=== PATIENT | male | born 1960 | race Caucasian/White ===

== ENCOUNTER 2022-01-11 08:37 | Outpatient (REF) | payer BC, SELFPAY ==
[2022-01-11 11:19] LABS: MANUAL DIFF FLAG NO
[2022-01-11 11:31] LABS: Basophils Percent Auto 0.7 % (0-2); Eosinophils Absolute Auto 0.2 X10*3/uL (0.0-0.4); Eosinophils Percent Auto 5.3 % (0-4); Hematocrit 44.5 % (42.0-52.0); Hemoglobin 14.5 g/dl (14.0-18.0); Imm Gran Abs Auto 0.01 X10*3/uL (0.00-0.03); Imm Gran Pct Auto 0.2 % (0.0-0.4); Lymphocytes Absolute Auto 1.3 X10*3/uL (1.2-4.9); Lymphocytes Percent Auto 29.3 % (20-40); Mean Corpuscular HGB Conc 32.6 g/dl (31.0-36.0); Mean Corpuscular Hemoglobin 28.3 pg (27.0-33.0); Mean Corpuscular Volume 86.7 fL (80.0-98.0); Mean Platelet Volume 11.8 fL (9.4-12.4); Monocytes Absolute Auto 0.4 X10*3/uL (0.1-1.2); Monocytes Percent Auto 8.8 % (2-11); Neutrophils Absolute Auto 2.4 x10*3/uL (2.0-8.3); Neutrophils Percent Auto 55.7 % (45-73); Platelet Count 234 X10*3/uL (160-400); Red Blood Count 5.13 X10*6/uL (4.60-5.80); Red Cell Distribution Width 13.2 % (11.0-16.0); White Blood Count 4.3 X10*3/uL (4.8-10.8)
[2022-01-11 11:50] LABS: Alanine Aminotransferase 20 U/L (0-40); Albumin Level 4.1 g/dL (3.5-5.0); Alkaline Phosphatase 70 U/L (39-117); Anion Gap 12 (12-20); Aspartate Amino Transferase 18 U/L (5-37); Bilirubin Total 0.8 mg/dL (0.0-1.0); Blood Urea Nitrogen 17 mg/dL (9-16); Calcium 9.3 mg/dL (8.4-10.2); Carbon Dioxide 28 mmol/L (22-29); Chloride 106 mmol/L (96-108); Cholesterol 173 mg/dL; Estimated Glomerular Filt Rate > 60; Glucose Fasting 92 mg/dL (60-99); HDL Cholesterol 50 mg/dL; LDL Cholesterol Calculated 111 mg/dl; Potassium 4.1 mmol/L (3.3-5.1); Sodium 142 mmol/L (135-145); Total Protein 6.7 g/dL (6.5-8.0); Triglycerides 63 mg/dL
[2022-01-11 12:17] LABS: Prostate Specific Antigen 0.79 ng/mL (<0.05-4.0)
== END 2022-01-11 08:38 | disposition home or self-care (01) ==
LOC: HO.MANLDS 08:37
PROVIDERS: PCP Internal Medicine; Visit Provider Internal Medicine
DX: Z12.5 Encounter for screening for malignant neoplasm of prostate (principal); E78.00 Pure hypercholesterolemia, unspecified
CPT/HCPCS: 36415; 80053; 80061; 84153; 85025

== ENCOUNTER 2024-04-01 07:52 | Outpatient (REF) | payer BC, SELFPAY ==
[2024-04-01 13:00] LABS: MANUAL DIFF FLAG NO
[2024-04-01 13:20] LABS: Basophils Percent Auto 0.8 % (0-2); Eosinophils Absolute Auto 0.3 X10*3/uL (0.0-0.4); Eosinophils Percent Auto 4.8 % (0-4); Hematocrit 45.6 % (42.0-52.0); Imm Gran Abs Auto 0.01 X10*3/uL (0.00-0.03); Imm Gran Pct Auto 0.2 % (0.0-0.4); Lymphocytes Absolute Auto 1.7 X10*3/uL (1.2-4.9); Lymphocytes Percent Auto 31.7 % (20-40); Mean Corpuscular HGB Conc 32.9 g/dl (31.0-36.0); Mean Corpuscular Hemoglobin 28.7 pg (27.0-33.0); Mean Corpuscular Volume 87.4 fL (80.0-98.0); Mean Platelet Volume 11.5 fL (9.4-12.4); Monocytes Absolute Auto 0.5 X10*3/uL (0.1-1.2); Monocytes Percent Auto 9.8 % (2-11); Neutrophils Absolute Auto 2.8 x10*3/uL (2.0-8.3); Neutrophils Percent Auto 52.7 % (45-73); Platelet Count 253 X10*3/uL (160-400); Red Blood Count 5.22 X10*6/uL (4.60-5.80); Red Cell Distribution Width 13.9 % (11.0-16.0); White Blood Count 5.2 X10*3/uL (4.8-10.8)
[2024-04-01 13:46] LABS: Alanine Aminotransferase 21 U/L (0-40); Albumin Level 4.2 g/dL (3.5-5.0); Alkaline Phosphatase 67 U/L (39-117); Anion Gap 11 (12-20); Aspartate Amino Transferase 21 U/L (5-37); Bilirubin Total 0.6 mg/dL (0.0-1.0); Blood Urea Nitrogen 17 mg/dL (9-16); Calcium 9.7 mg/dL (8.4-10.2); Carbon Dioxide 28 mmol/L (22-29); Chloride 106 mmol/L (96-108); Cholesterol 194 mg/dL (<200); Estimated Glomerular Filt Rate > 60; Glucose Random 88 mg/dL (60-115); HDL Cholesterol 56 mg/dL (>40); LDL Cholesterol Calculated 122 mg/dL (<100); Potassium 4.3 mmol/L (3.3-5.1); Sodium 141 mmol/L (135-145); Triglycerides 83 mg/dL (<150)
[2024-04-01 13:47] LABS: Prostate Specific Antigen 0.64 ng/mL (<0.05-4.0)
== END 2024-04-01 07:53 | disposition home or self-care (01) ==
LOC: HO.MANLDS 07:52
PROVIDERS: Visit Provider Internal Medicine
DX: E78.00 Pure hypercholesterolemia, unspecified (principal); Z12.5 Encounter for screening for malignant neoplasm of prostate
CPT/HCPCS: 36415; 80053; 80061; 84153; 85025

== ENCOUNTER 2025-08-21 09:20 | Outpatient (REF) | payer MEDICARE, BC, SELFPAY ==
--- OUTSIDE RECORDS SUMMARY | 2025-08-21 09:49 | XMS_ITS | Continuity of Care Document ---
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) MDM MODERATE MUST MEET 2 OUT OF 3 ELEMENTS: PROBLEMS, DATA OR RISK ELEMENT 1: PROBLEMS ADDRESSED 1 OR MORE CHRONIC ILLNESS WITH EXACERBATION OR 2 OR MORE STABLE CHRONIC ILLNESSES OR 1 UNDIAGNOSED NEW PROBLEM OR 1 ACUTE ILLNESS W/SYMPTOMS OR 1 ACUTE COMPLICATED INJURY ELEMENT 2: DATA MUST MEET 1 OF 3 CATEGORIES CATEGORY 1: REVIEW OF PRIOR EXTERNAL NOTES, REVIEW OF RESULTS, ORDERING OF EACH TEST, ASSESSMENT REQUIRING INDEPENDENT HISTORIAN OR CATEGORY 2: INDEPENDENT INTERPRETATION OF TESTS BY ANOTHER PHYSICIAN OR SPECIALIST OR CATEGORY 3: DISCUSSION OF MGT OR TEST INTERPRETATION W/EXTERNAL PHYSICIAN OR SPECIALIST ELEMENT 3: RISK RISK OF COMPLICATIONS AND/OR MORBIDITY OR MORTALITY OF PATIENT MANAGEMENT PROVIDER MUST THOROUGHLY DOCUMENT EACH ELEMENT THAT IS COVERED [email or web address] Not available 08/21/2025 09:09:19 Plan of Treatment Reminders Order Date Submit Date Provider Last Modified By Organization Details Last Modified Time Details Appointments FOLLOW UP 15 2024 09:00A M DR CHAPPELL Not available Not available Not available Lab lipid panel, blood 2024 025 [facility], [address] [place] [address], [id number], 08/21/2025 09:15:29 CMP, serum or plasma 2024 025 [facility], [address] [place] [address], [id number], 08/21/2025 09:15:30 PSA, serum or plasma 2024 025 [facility], [address] [place] [address], [id number], 08/21/2025 09:15:30 CBC w/ auto diff 2024 025 [facility], [address] [place] [address], [id number], 08/21/2025 09:15:29 Referral hand surgeon referral 2024 025 [email or web address] Emilia Murphy MD, [address] [place] [address], [id number], 08/21/2025 09:11:47 Procedures None recorded. Surgeries None recorded. Imaging None recorded. Medication Orders None recorded. Patient TargetsNo targets recorded. Patient InstructionsNo instructions recorded. Reason for Referral Hand Surgeon Referral for En trapment of left ulnar nerve Referring Physician: Ulysses Chappell, Internal Medicine, Encounter Date: 08/21/2025 Problems Name Problem SNOMED Code Status Onset Date Resolution Date Notes Provider Name and Address Organization Details Recorded Time Bilateral cataracts 85477959 Active 2018 Davina torres [facility] 9 11:16:53 Gout 15132176 Active 2018 Davina torres [facility] 9 11:16:56 Hyperchol esterolem ia 85707312 Active 2018 Davina torres [facility] 9 11:17:01 Family history of stroke 138063833 Active 2018 Davina torres [facility] 9 11:17:11 Family history of Myocardia l infarctio n 827498375 Active 2018 Davina torres [facility] 9 11:17:19 Family history of neoplasm of cervix 023896975 Active 2018 Davina torres [facility] 9 11:17:29 Full thickness rotator cuff tear 502061667 Active 2021 Ulysses Chappell, DO [address] [place] [address], [phone], [facility] 2 15:14:15 Acute conjuncti vitis 33758979 Active 2022 Ulysses Chappell, [address], [phone], [facility] 3 22:54:59 Acute right otitis media 623703961 Active 2022 Ulysses Chappell, DO [address] [place] [address], [phone], [facility] 3 15:00:47 Lumbago with sciatica 881525834 Active 2023 PARIS PHILLIPS [address] [place] [address], [phone], [facility] 4 11:39:08 Lumbago with sciatica 944729096 Active 2023 PARIS PHILLIPS [address] [place] [address], [phone], [facility] 4 11:39:15 Entrapmen t of left ulnar nerve 985727945775 101 Active 2024 Ulysses Chappell [address], [phone], [facility] 5 09:10:03 Problem Notes None recorded. Procedures Surgical History Date Name Laterality Status Provider Name and Address Organization Details Recorded Time 5 Colonoscopy completed Davina Austin [facility] 10/30/2018 11:31:24 Imaging Results None recorded. Procedure Notes None recorded. Medical Equipment None Reported. Allergies Allergen ID Allergen Name Allergen Category Reaction Reaction Severity Criticality Documentation Date Start Date Code Code System Note Provider Name and Address Organization Details Recorded Time 1015 atorvasta tin medicatio n myalgias (muscle pain) Not available Not available 10/30/2018 03696 RxNorm Davina Austin [facility] 9 11:16:46 Medications Name Sig Start Date Stop Date Status Note LastModified by Organization Details LastModified Time amoxicillin 500 mg capsule 03/26 completed Not Available Not Available Not Available prednisone 10 mg tablet 50 mg x 2 days40 mg x 2 days30 mg x 2 days20 mg x 2 days10 mg x 2 days 08/21 completed Not Available Not Available Not Available valacyclovi r 1 gram tablet Take 1 tablet every day by oral route for 30 days. 03/26 completed Not Available Not Available Not Available tramadol 50 mg tablet TAKE 1 TABLET BY MOUTH EVERY 6 HOURS FOR 14 DAYS NEEDED 08/21 completed Not Available Not Available Not Available baclofen 10 mg tablet TAKE 1 TABLET BY MOUTH THREE TIMES DAILY FOR 14 DAYS NEEDED 08/21 completed Not Available Not Available Not Available polymyxin B sulfate 10,000 unit-trimet hoprim 1 mg/mL eye drops PUT 1 DROP INTO THE AFFECTED EYE(S) EVERY 6 HOURS 01/02 completed Not Available Not Available Not Available colchicine 0.6 mg tablet Take 1 tablet 3 times a day by oral route as needed for 7 days. 06/16 completed Not Available Not Available Not Available amoxicillin 875 mg-potassiu m clavulanate 125 mg tablet TAKE 1 TABLET BY MOUTH EVERY 12 HOURS FOR 10 DAYS 03/26 completed Not Available Not Available Not Available oxycodone 5 mg tablet 01/02 completed Not Available Not Available Not Available rosuvastati n 5 mg tablet TAKE 1 TABLET BY MOUTH EVERY DAY active Not Available Not Available No t Available Vitals Date Recorded Body height Body mass index (BMI) Body weight Heart rate Oxygen saturation Systolic And Diastolic Provider Name and Address Organization Details Last Updated DateTime 5 172.72 cm 29.6 kg/m2 99736.5 1 g 53 /min 96 % 132/88 mm[Hg] [facility] 5 08:55:27 Social History Question Answer Notes LastModified by Organizat ion Details LastModified Time Tobacco Smoking Status Never Smoker Not Available [employer] 08/03/2020 03:36:24 What Was The Date Of Your Most Recent Tobacco Screening? 08/21/2025 [email or web address] Information not available 08/21/2025 Sex: Unknown Functional Status Question Answer Note LastModified by Organization D etails LastModified Time Do you or have you ever used any other forms of tobacco or nicotine? No [email or web address] Information not available 01/06/2022 Mental Status None recorded. Family History Nothing Reported. Medical History No medical history recorded. Past Encounters Encounter ID Performer Location Encounter Start Date Encounter Closed Date Diagnosis/Indication Diagnosis SNOMED-CT Code Diagnosis ICD10 Code Diagnosis IMO Codes Diagnosis Note [id number] Ulysses Chappell DO [facility] [address] [address] 08/21/2025 08:48:54 08/21/2025 09:14:51 Depression screening 900683418 Z13.31 SCREENING NEGATIVE Hypercholesterolemia 136 57936 E78.00 LDL elevated 140, HDL 56 - continue current tx discussed in detail ETT 'is negative in the past Lumbago with sciatica 20 3566724 M54.42 doing ok Entrapment of left ulnar nerve 1971983602 83036 G56.22 20840303 Ongoing paraesthes ia, no weakness Health Concerns Section Related Observation LastModified by Organization Detai ls LastModified Time None Recorded Concern Status LastModified by Organization Details LastModified Time None Recorded Payers Encounter Date Sequence Insurance Name Policy Number Policy Hodgson Covered Member ID Hodgson Member ID Guarantor Name 08/21/2025 2 [place] [facility] Adal Piña [id number] 25 Adal Piña 08/21/2025 1 [place] [facility] [place] [place] [id number] Davina Gupta Lococo [id number] 25 Adal Piña Notes Date Note Type Note Provider Name and Address Organization Details Recorded Time 08/21/20 25 text/htm l Care Management - HyperlipidemiaReported by PatientHPIFor control, patient reportsusually well controlled,improving, andat goal. 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 and has worsened, no improvement with NSAIDs, ice, heat, rest, massage, biofreezerecommended start pred taper with as needed tramadol and baclofen for painpain radiates from the left lower back into the left leg to the knee, feels burning and stingingbetter when he stands or leans forward, worse when he is sitting recommended medications firstif no improvement will pursue imaging also needs to hold off heavy liftingrecommend back brace for heavy lifting, can take off after Ulysses Chappell, DO [address], [place], [address], [facility] 08/21/2025 09:14:50
--- OUTSIDE RECORDS SUMMARY | 2025-08-21 09:49 | XMS_ITS | Data Portability ---
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) [facility] MODERATE MUST MEET 2 OUT OF 3 [...] THOROUGHLY DOCUMENT EACH ELEMENT THAT IS COVERED Not available 03/26/2024 09:45:47 08/21/2025 08/21/2025 [id number] [place] [address] (CEMENT RAILRO[employer] LO[employer]ER) MDM MODERATE MUST MEET 2 OUT OF [...] THOROUGHLY DOCUMENT EACH ELEMENT THAT IS COVERED Not available 08/21/2025 09:09:19 Plan of Treatment Reminders Order Date Submit Date Provider Last Modified By Organization Details Last Modified Time Details Appointments FOLLOW UP 15 2024 09:00A M DR CHAPPELL Not available Not available Not available Lab lipid panel, blood 2024 025 [facility], [address] [place] [address], [id number], 08/21/2025 09:15:29 CMP, serum or plasma 2024 025 [facility], [address] [place] [address], [id number], 08/21/2025 09:15:30 PSA, serum or plasma 2024 025 [facility], [address] [place] [address], [id number], 08/21/2025 09:15:30 CBC w/ auto diff 2024 025 [facility], [address] [place] [address], [id number], 08/21/2025 09:15:29 lipid panel, blood 2023 024 [facility], [address] [place] [address], [id number], 04/02/2024 11:17:52 CMP, serum or plasma 2023 024 [facility], [address] [place] [address], [address], 04/02/2024 11:17:52 PSA, serum or plasma 2023 024 [facility], [address] [place] [address], [address], 04/02/2024 11:17:51 CBC 2023 024 [facility], [address] [place] [address], [address], 04/02/2024 11:17:52 lipid panel, blood 2021 [facility], [address] [place] [address], [id number], 01/06/2022 15:20:27 CMP, serum or plasma 2021 022 [facility], [address] [place] [address], [address], 01/12/2022 16:02:17 PSA, serum or plasma 2021 022 [facility], [address] [place] [address], [id number], 01/06/2022 15:20:27 CBC w/ auto diff 2021 022 [facility], [address] [place] [address], [id number], 01/06/2022 15:20:27 Referral hand surgeon referral 2024 025 [email or web address] Emilia Murphy MD, [address] [place] [address], [id number], 08/21/2025 09:11:47 Procedures None recorded. Surgeries None recorded. Imaging CT, coronary calcium score 2023 024 [facility], [address] [place], [address], 04/14/2024 08:09:34 CT, coronary calcium score 2021 022 [facility], [address] [place], [address], 01/23/2022 08:38:06 Medication Orders tramadol 50 mg tablet 2023 024 [id number], [address], [place], [id number], 08/21/2025 08:56:22 prednison e 10 mg tablet [address] [facility]504, [address], [place], [id number], 08/21/2025 08:56:21 baclofen 10 mg tablet [address] [facility]55887, [address], [place], [id number], 08/21/2025 08:56:12 amoxicill in 875 mg-potass ium clavulana te 125 mg tablet 2022 023 [email or web address] [facility][id number], [address], [place], [id number], 03/26/2024 09:24:15 Patient TargetsNo targets recorded. Patient Instructions Encounter Date Encounter Id Patient Instructions Last Modified By Organization Details Last Modified Time 03/26/2024 [id number] gout: care instructions Not available 03/26/2024 09:51:37 Reason for Referral Hand Surgeon Referral for En trapment of left ulnar nerve Referring Physician: Ulysses Chappell, Internal Medicine, Encounter Date: 08/21/2025 Results Created Date Observation Date Name Description Value Unit Range Abnormal Flag Note LastModifiedBy Organization Detail LastModifiedTime 05/02/20 24 05/02/2024 CT, coron serge calci um score No observ ation record ed[facility] [address] [facility] [address], [place], [address], 08/25/2024 11:44:02 Result Notes None recorded. Problems Name Problem SNOMED Code Status Onset Date Resolution Date Notes Provider Name and Address Organization Details Recorded Time Bilateral cataracts 70307058 Active 2018 Davina torres [facility] 9 11:16:53 Gout 47329009 Active 2018 Davina torres [facility] 9 11:16:56 Hyperchol esterolem ia 57071032 Active 2018 Davina torres [facility] 9 11:17:01 Family history of stroke 298413970 Active 2018 Davinacamilo torres [facility] 9 11:17:11 Family history of Myocardia l infarctio n 258506994 Active 2018 Davina torres [facility] 9 11:17:19 Family history of neoplasm of cervix 015992274 Active 2018 Davina torres [facility] 9 11:17:29 Full thickness rotator cuff tear 612698929 Active 2021 Ulysses Chappell DO [address] [place] [address], [place], [address], [facility] 2 15:14:15 Acute conjuncti vitis 07773022 Active 2022 Ulysses Chappell DO [address] [place], [address], [facility] 3 22:54:59 Acute right otitis media 977106690 Active 2022 Ulysses Chappell DO [address] [place], [address], [facility] 3 15:00:47 Lumbago with sciatica 950599211 Active [address] [place], [address], [facility] 4 11:39:08 Lumbago with sciatica 063777471 Active [address] [place], [address], [facility] 4 11:39:15 Entrapmen t of left ulnar nerve 073352870942 101 Active 2024 Ulysses Chappell, [address] [place] [address], [address], [facility] 5 09:10:03 Problem Notes None recorded. Procedures Surgical History Date Name Laterality Status Provider Name and Address Organization Details Recorded Time 5 Colonoscopy completed Davina Austin [facility] 10/30/2018 11:31:24 Imaging Results None recorded. Procedure Notes None recorded. Medical Equipment None Reported. Allergies Allergen ID Allergen Name Allergen Category Reaction Reaction Severity Criticality Documentation Date Start Date Code Code System Note Provider Name and Address Organization Details Recorded Time 2755 atorvasta tin medicatio n myalgias (muscle pain) Not available Not available 10/30/2018 [id number] RxNorm Davina Austin [facility] 9 11:16:46 Medications Name Sig Start Date [...] t Available Vitals Date Recorded Body height Heart rate Oxygen saturation Systolic And Diastolic Provider Name and Address Organization Details Last Updated DateTime 01/02/2023 172.72 cm 77 /min 98 % 132/70 mm[Hg] Ulysses Chappell, DO [address] [place] [address], [place], [address], [facility] 3 14:47:18 Date Recorded Body height Body mass index (BMI) Body weight Heart rate Oxygen saturation Systolic And Diastolic Provider Name and Address Organization Details Last Updated DateTime 2 172.72 cm 29.1 kg/m2 47651.8 6 g 71 /min 98 % 148/80 mm[Hg] Davina Austin [facility] 2 15:02:46 Date Recorded Body weight Heart rate Oxygen saturation Systolic And Diastolic Provider Name and Address Organization Details Last Updated DateTime 03/26/2024 80674.93 g 60 /min 98 % 134/88 mm[Hg] Amy Wolff [facility] 03/26/2024 09:27:52 Date Recorded Body height Body mass index (BMI) Body weight Heart rate Oxygen saturation Systolic And Diastolic Provider Name and Address Organization Details Last Updated DateTime 5 172.72 cm 29.6 kg/m2 80018.5 1 g 53 /min 96 % 132/88 mm[Hg] Deven Ariana [facility] 5 08:55:27 Date Recorded Body height Body mass index (BMI) Body weight Heart rate Oxygen saturation Systolic And Diastolic Provider Name and Address Organization Details Last Updated DateTime 4 172.72 cm 29.7 kg/m2 69369.6 7 g 66 /min 99 % 134/78 mm[Hg] Amy Wolff [facility] 4 11:32:39 Social History Question Answer Notes LastModified by [...] ICD10 Code Diagnosis IMO Codes Diagnosis Note [id number] Ulysses Chappell [facility] [address] [place] [address] 10/30/2018 11:21:01 10/30/2018 12:18:47 Hypercholesterolemia 61335683 E78.00 will need to check lab will cont the med for now Hepatitis C screening 41 5943400 Z11.59 will check Snoring 84330849 R06.83 will obtain home sleep testing [id number] Ulysses Chappell [facility] [address] [place] [address] 04/30/2019 08:52:36 04/30/2019 09:27:02 Hypercholesterolemia 17244019 E78.00 will need to check lab will cont the med for now Gout 93865523 M10.9 here and is [place] [id number] Ulysses Chappell [facility] [address] [place] [address],[place] [address] 10/29/2019 09:06:19 10/29/2019 10:10:57 Hypercholesterolemia 37225149 E78.00 LDL elevated 140, HDL 56 - continue current tx Multiple risk factors and new exercise program, exertional dyspnea Active or passive immunization 019482782 Z23 Discussed importance of flu vaccine Gout 55202811 M10.9 here and is doing great no issues uses sporadical ly Ulnar nerv e entrapment at elbow 570435056 G56.22 Ongoing paraesthes ia, no weakness Screening for malignant neoplasm of skin 567592467 Z12.83 Concerned over skin changes Hallux ti teri AND bunion 242931554 M20.11 Pain when he hits it Discussed better fitting shoes and call if worsens [id number] Ulysses Chappell [facility] [address] [facility], [place] [address] 12/10/2019 09:53:39 12/10/2019 10:39:32 Gout 76408575 M10.9 here and is doing great no issues uses sporadical ly Hypercholesterolemia 136 42156 E78.00 LDL elevated 140, HDL 56 - continue current tx discussed in detail ETT 'is negative [id number] Ulysses Chappell [facility] [address] [facility], [place] [address] 06/16/2020 08:53:20 06/16/2020 09:39:29 Malaise and fatigue 216365691 R53.81 Gout 35504440 M10.9 here and is doing great [place] [id number] Ulysses Chappell [facility] [address] [facility], [place] [address] 12/17/2020 14:02:45 12/17/2020 14:30:19 Pain of right shoulder joint 9883229595 3914112 M25.511 could this be an impingemen t within the acetabulum or a rotator tear?? [id number] Ulysses Chappell [facility] [address] [facility],[place] [address] 01/06/2022 14:57:35 01/06/2022 15:22:08 Family history of Myocardial infarction 285933374 Z82.49 Full thick ness rotator cuff tear 711533595 M75.121 going for surg in next few weeks Hypercholesterolemia 136 88597 E78.00 LDL elevated 140, HDL 56 - continue current tx discussed in detail ETT 'is negative [id number] Ulysses Vivasamber [facility] [address] [facility],[place] [address] 01/02/2023 14:42:36 01/02/2023 15:07:11 Acute right otitis media 996694229 H66.91 [id number] Ulysses Chappell [facility] [address],[place] [address] 03/26/2024 09:14:31 03/26/2024 10:29:28 Depression screening 467739622 Z13.31 SCREENING NEGATIVE Family his tory of Myocardial infarction 280876133 Z82.49 given dad with heart disease we will check Hypercholesterolemia 136 90054 E78.00 LDL elevated 140, HDL 56 - continue current tx discussed in detail ETT 'is negative in the past Gout 70738448 M10.9 here and is doing great no issues uses sporadical ly [id number] Ulysses Vivasamber [facility] [address],[place] [address] 08/25/2024 11:28:39 08/25/2024 11:49:14 Lumbago with sciatica 538837418 M54.42 will set up with tramadol, prednisone , baclofen [id number] Ulysses Vivasamber [facility] [address],[place] [address] 08/21/2025 08:48:54 08/21/2025 09:14:51 Depression screening 156342065 Z13.31 SCREENING NEGATIVE Hypercholesterolemia 136 59747 E78.00 LDL elevated 140, HDL 56 - continue current tx discussed in detail ETT 'is negative in the past Lumbago with sciatica 8886932 M54.42 doing ok Entrapment of left ulnar nerve 3688286741 48308 G56.22 69043732 Ongoing paraesthes ia, no weakness Health Concerns Section Related Observation LastModified by Organization Detai ls LastModified Time None Recorded Concern Status LastModified by Organization Details LastModified Time None Recorded Advance Directives Directive None Recorded Payers Insurance Date Sequence Insurance Name Policy Number Policy Hodgson Covered Member ID Hodgson Member ID Guarantor Name 08/21/2025 1 [place] [id number] Adal Gupta Lococo [id number] Adal Gupta Lococo 08/21/2025 1 [employer] Adal Lococo [id number] Adal Gupta Lococo 08/21/2025 3 [place] Adal Gupta Lococo [id number] Adal Gupta Lococo 08/21/2025 2 [place] Adal Gupta Lococo [id number] Adal Gupta Lococo 08/21/2025 1 [place] [facility] (O) [id number] Davina [place] Lococo [id number] Adal Gupta Lococo Notes Date Note Type Note Provider Name and Address Organization Details Recorded Time 01/07/20 22 text/htm l ROS as noted in the HPI here for rechk and doing wellno cp nossobeating goodsleep okbowels okbladder ok Ulysses Chappell DO [address] [place] [address], [address], [facility] 01/06/2022 15:16:08 01/03/20 23 text/htm l ROS as noted in the HPI woke up am with severe pain to his right earwent to the UC and was told he had infect and to take amox 500 tid Ulysses Chappell DO [address] [place], [address], [facility] 01/02/2023 15:05:08 03/26/20 24 text/htm l ROS as noted in the HPI here for rechk and is doing ok overallstays activerelates no cp no sobjust seems more tired lately right shoulder is doing good overall Ulysses Chappell DO [address] [place], [address], [facility] 03/26/2024 09:58:23 08/25/20 24 text/htm l ROS as noted in the HPI c/o lower [...] for heavy lifting, can take off after PARIS PHILLIPS [address] [place], [address], [facility] 08/25/2024 11:49:00 08/21/20 text/htm l Care Management - HyperlipidemiaReported by [...] heavy lifting, can take off after Ulysses Chappell DO [address] [facility], [place], [address], [facility] 08/21/2025 09:14:50
[2025-08-21 14:01] LABS: MANUAL DIFF FLAG NO
[2025-08-21 14:13] LABS: Hematocrit 45.4 % (42.0-52.0); Hemoglobin 14.9 g/dl (14.0-18.0); Imm Gran Abs Auto 0.01 X10*3/uL (0.00-0.03); Imm Gran Pct Auto 0.2 % (0.0-0.4); Lymphocytes Absolute Auto 1.7 X10*3/uL (1.2-4.9); Mean Corpuscular HGB Conc 32.8 g/dl (31.0-36.0); Mean Corpuscular Hemoglobin 28.2 pg (27.0-33.0); Mean Corpuscular Volume 86.0 fL (80.0-98.0); NRBC Abs Auto 0.000 X10*3/uL (0.0-0.012); NRBC Pct Auto 0.0 /100WBC (0.0-0.2); Platelet Count 262 X10*3/uL (160-400); Red Blood Count 5.28 X10*6/uL (4.60-5.80); White Blood Count 5.2 X10*3/uL (4.8-10.8)
[2025-08-21 14:57] LABS: Alanine Aminotransferase 25 U/L (0-40); Albumin Level 4.4 g/dL (3.5-5.0); Alkaline Phosphatase 72 U/L (39-117); Anion Gap 6 (12-20); Aspartate Amino Transferase 25 U/L (5-37); Blood Urea Nitrogen 20 mg/dL (9-16); Calcium 9.1 mg/dL (8.4-10.2); Carbon Dioxide 31 mmol/L (22-29); Chloride 108 mmol/L (96-108); Cholesterol 187 mg/dL (<200); Estimated Glomerular Filt Rate > 60; HDL Cholesterol 47 mg/dL (>40); Potassium 4.1 mmol/L (3.3-5.1); Prostate Specific Antigen 0.63 ng/mL (<0.05-4.0); Sodium 141 mmol/L (135-145); Total Protein 6.9 g/dL (6.5-8.0); Triglycerides 65 mg/dL (<150)
== END 2025-08-21 09:21 | disposition home or self-care (01) ==
LOC: HO.MANLDS 09:20
PROVIDERS: Visit Provider Internal Medicine
DX: Z12.5 Encounter for screening for malignant neoplasm of prostate (principal); E78.00 Pure hypercholesterolemia, unspecified
CPT/HCPCS: 36415; 80053; 80061; 84153; 85025